=== PATIENT | male | born 1995 | race Caucasian/White ===

== ENCOUNTER 2018-06-15 23:17 | Emergency (ER) | payer OTHER ==
[~2018-06-15] VITALS: Ht 170.2 cm; Wt 72.6 kg
[~2018-06-15 23:17] MED LIST: SUMYCIN 250250 MG; ZONEGRAN100 MG PO
[2018-06-16] MEDS ORDERED: TOBRAMYCIN SULFA5 M1 OPHTHALMIC (00:54)
[2018-06-16] MEDS ORDERED: NORCO 5-325 TA1 EACH PO (00:54)
[2018-06-16] MEDS ORDERED: IBUPROFEN 800800 M1 PO (00:54)
[2018-06-16 01:13] VITALS: BP 134/78
== END 2018-06-16 01:13 | disposition home or self-care (01) ==
LOC: ER 23:17
DX: H16.133 Photokeratitis, bilateral (principal)

== ENCOUNTER 2018-10-20 17:25 | Emergency (ER) | payer OTHER ==
[~2018-10-20] VITALS: Ht 180.3 cm; Wt 68.0 kg
[2018-10-20 17:25] VITALS: BP 121/58
[~2018-10-20 17:25] MED LIST changes: +IBUPROFEN 800800 M1 PO; +NORCO 5-325 TA1 EACH PO; +TOBRAMYCIN SULFA5 M1 OPHTHALMIC
[2018-10-20 18:24] LABS: CALCIUM 8.6 mg/dL (8.5-10.1); CREATININE 1.2 mg/dL (0.7-1.3); POTASSIUM 3.7 mmol/L (3.5-5.1)
[2018-10-20 18:26] LABS: ABSOLUTE NEUTROPHILS 3.2 thou/uL (1.4-8.2); BASOPHILS 0.8 % (0.0-2.0); EOSINOPHILS 2.8 % (0.0-3.0); HEMOGLOBIN 12.4 gm/dL (14.0-18.0); LYMPHOCYTES 30.8 % (24.0-44.0); MCH 29.9 pg (26.0-34.0); MCHC 34.4 g/dL (28.0-37.0); MONOCYTES 9.8 % (1.0-8.0); PLATELET COUNT 246 thou/uL (150-400); POLYS 55.8 % (36.0-66.0); RBC 4.14 mil/uL (4.50-6.00); RDW 12.9 % (10.5-14.5); WBC 5.8 thou/uL (4.0-11.0)
[2018-10-20 18:31] LABS: TOTAL BILIRUBIN 0.1 mg/dL (<0.1-1.0); TOTAL PROTEIN 6.9 g/dL (6.4-8.2)
[2018-10-20 18:59] LABS: AMP/METHAMP Negative (Negative); BARBITURATES Negative (Negative); BENZODIAZEPINES Negative (Negative); COCAINE Negative (Negative); METHADONE Negative (Negative); OPIATES Negative (Negative); PCP Negative (Negative)
--- NOTE | 2018-10-22 08:26 | EKG ---
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 : 1995 Requested By: Po Borges Order Number: [id number] MD: Daniel Clements Measurements Intervals [place] Rate: 99 P: 53 [place]: 200 QRS: 37 QRSD: 99 T: 31 QT: 349 QTc: 448 Interpretive Statements Sinus rhythm Borderline prolonged [place] interval RSR' in V1 or V2, right VCD or RVH Compared to ECG 07/27/2015 09:44:19 Right ventricular hypertrophy now present RSR' in V1 or V2 now present Electronically Signed On 10-22-2018 8:25:49 CDT by Daniel Clements [email or web address] <ELECTRONICALLY SIGNED> By: Daniel Clements MD 10/22/18 0825 180 08 Daniel Clements MD /EPI
== END 2018-10-20 18:57 | disposition home or self-care (01) ==
LOC: ER 17:25
PROVIDERS: Emergency Medicine
DX: R56.9 Unspecified convulsions (principal)

== ENCOUNTER 2020-12-01 19:52 | Emergency (ER) | payer OTHER ==
[~2020-12-01] VITALS: Ht 172.7 cm; Wt 70.3 kg
[2020-12-01 20:32] LABS: ABSOLUTE NEUTROPHILS 8.2 thou/uL (1.4-8.2); BASOPHILS 0.2 % (0.0-2.0); EOSINOPHILS 0.6 % (0.0-3.0); HEMATOCRIT 40.2 % (42.0-52.0); HEMOGLOBIN 13.7 gm/dL (14.0-18.0); LYMPHOCYTES 13.2 % (24.0-44.0); MCH 30.1 pg (26.0-34.0); MCV 88.5 fL (80.0-100.0); MONOCYTES 5.7 % (1.0-8.0); PLATELET COUNT 182 thou/uL (150-400); POLYS 80.3 % (36.0-66.0); RBC 4.55 mil/uL (4.50-6.00); RDW 12.6 % (10.5-14.5); WBC 10.3 thou/uL (4.0-11.0)
[2020-12-01 20:57] LABS: CALCIUM 8.6 mg/dL (8.5-10.1); POTASSIUM 4.1 mmol/L (3.5-5.1)
[2020-12-01 21:04] LABS: ALBUMIN 4.2 g/dL (3.4-5.0); TOTAL BILIRUBIN 0.4 mg/dL (0.2-1.0); TOTAL PROTEIN 7.3 g/dL (6.4-8.2)
[2020-12-01 21:22] VITALS: BP 111/51
[2020-12-01] MEDS ORDERED: ZONEGRAN100 MG PO (21:26)
[2020-12-01 21:33] LABS: AMP/METHAMP Negative (Negative); BARBITURATES Negative (Negative); BENZODIAZEPINES Negative (Negative); COCAINE Negative (Negative); METHADONE Negative (Negative); OPIATES Negative (Negative); PCP Negative (Negative)
--- NOTE | 2020-12-02 15:04 | EKG ---
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 [employer]: yohan mcdonald : 1995 Requested By: Ben Galindo Order Number: [id number] MD: Barry Leung Measurements Intervals [place] Rate: 75 P: 65 [place]: 192 QRS: 46 QRSD: 100 T: 35 QT: 374 QTc: 418 Interpretive Statements Sinus rhythm Poor R wave progression Compared to ECG 10/20/2018 18:09:01 T wave abnormality is no longer present Electronically Signed On 12-02-2020 15:03:52 CDT by Barry Leung [email or web address] <ELECTRONICALLY SIGNED> By: Barry Leung MD, [facility] 12/02/20 1503 2118 17 Barry Leung MD, FACC /EPI
== END 2020-12-01 22:32 | disposition home or self-care (01) ==
LOC: ER 19:52
PROVIDERS: Physician Assistant
DX: R56.9 Unspecified convulsions (principal); Z76.0 Encounter for issue of repeat prescription; Z79.1 Long term (current) use of non-steroidal anti-inflammatories (NSAID); Z79.891 Long term (current) use of opiate analgesic; Z79.899 Other long term (current) drug therapy